=== PATIENT | female | born 2005 | race Caucasian/White ===

== ENCOUNTER 2024-09-10 01:45 | Day surgery (SDC) | payer OTHER ==
[2024-09-10] MEDS ORDERED: hydrALAZINE 20 MG/ML VIAL SLOW IVP PRN (01:54)
[2024-09-10 04:11] VITALS: BMI 39.1
[2024-09-10 04:16] LABS: #Basophils 0.03 10x3/uL (0.0-0.2); #Eosinophils 0.09 10x3/uL (0.0-0.5); #Monocytes 0.73 10x3/uL (0.0-1.1); #Neutrophils 7.74 10x3/uL (1.5-8.4); %Basophils 0.3 % (0.0-2.0); %Eosinophils 0.9 % (0.0-6.0); %Lymphocytes 13.8 % (18.0-47.0); %Monocytes 7.3 % (0.0-10.0); %Neutrophils 77.3 % (40.0-75.0); Hematocrit 32.6 % (34.9-44.5); Hemoglobin 10.6 g/dL (12.0-15.5); Mean Corpuscular Hemoglobin 27.7 pg (27.0-33.0); Mean Corpuscular Volume 85.3 fL (81.6-98.3); Platelet Count 314 10x3/uL (150-450); Red Blood Cell (RBC) Count 3.82 10x6/uL (3.90-5.03); White Blood Cell (WBC) Count 10.01 10x3/uL (3.5-10.5)
[2024-09-10 04:36] LABS: ALT (SGPT) 25 U/L (Less than 34); AST (SGOT) 21 U/L (11-34); Albumin 2.9 g/dL (3.1-4.5); Alkaline Phosphatase 142 U/L (40-110); Anion Gap 16 mmol/L (10-20); BUN (Urea Nitrogen) 8 mg/dL (7.0-18.7); Bilirubin, Total 0.4 mg/dL (0.3-1.2); Calc. Creatinine Clearance 224 mL/min (70-130); Calcium 8.9 mg/dL (7.8-10.44); Carbon Dioxide 18 mmol/L (22-29); Chloride 107 mmol/L (98-107); Globulin 3.9 g/dL (2.4-3.5); Glucose 126 mg/dL (70-105); Potassium 4.1 mmol/L (3.5-5.1); Sodium 137 mmol/L (136-145)
== END 2024-09-10 08:00 | disposition home health service (06) ==
LOC: CSHLD/OP 01:45
PROVIDERS: ATTEND Family Medicine
DX: O47.03 False labor before 37 completed weeks of gestation, third trimester (principal); Z3A.34 34 weeks gestation of pregnancy; Z79.899 Other long term (current) drug therapy
CPT/HCPCS: 36415; 76705; 76770; J3010

== ENCOUNTER 2024-10-14 20:14 | Inpatient (IN) | payer OTHER ==
[2024-10-14 22:40] VITALS: BMI 40.7
[2024-10-14] MEDS ORDERED: Methylergonovine 0.2 MG/ML VIAL IM PRN (22:41)
[2024-10-14] MEDS ORDERED: Acetaminophen 500 MG TAB PO PRN (22:41)
[2024-10-14] MEDS ORDERED: Diphenoxylate HCl/Atropine Tablet PO PRN (22:41)
[2024-10-14] MEDS ORDERED: Oxytocin 30 units/NS 500 ML 500 ML IV SCH ×2 (22:41)
[2024-10-14] MEDS ORDERED: Ondansetron PF 4 MG/2 ML Vial IVP PRN (22:41)
[2024-10-14] MEDS ORDERED: HYDROcodone/Acetaminophen 5/325 mg Tablet PO PRN (22:41)
[2024-10-14] MEDS ORDERED: Tranexamic Acid 1,000 MG/10 ML VIAL IVP PRN (22:41)
[2024-10-14] MEDS ORDERED: Carboprost 250 MCG/ML AMP IM PRN (22:41)
[2024-10-14 22:47] LABS: Hematocrit 30.9 % (34.9-44.5); Hemoglobin 10.2 g/dL (12.0-15.5); Mean Corpuscular Hemoglobin 27.3 pg (27.0-33.0); Mean Corpuscular Volume 82.6 fL (81.6-98.3); Platelet Count 307 10x3/uL (150-450); Red Blood Cell (RBC) Count 3.74 10x6/uL (3.90-5.03); White Blood Cell (WBC) Count 6.97 10x3/uL (3.5-10.5)
[2024-10-14 23:17] LABS: Hep B Surf Ag - L&D Non-Reactive S/CO (NonReactive)
[2024-10-14 23:19] LABS: Syphilis Antibody Index 0.06 S/CO (<1.00 Non-Reactive)
[2024-10-15] MEDS: Penicillin G Potassium 5 MILL.UNITS in Sodium Chloride 0.9% 100 ML IVPB SCH (05:24)
[2024-10-15] MEDS: Oxytocin 30 units/NS 500 ML 500 ML IV SCH (05:24)
[2024-10-15] MEDS: fentaNYL/Ropivacaine Epidural 100 ML ONE (06:25)
[2024-10-15] MEDS ORDERED: Acetaminophen 325 MG TAB PO PRN (06:29)
[2024-10-15] MEDS ORDERED: diphenhydrAMINE 50 MG/ML VIAL IVP PRN (06:29)
[2024-10-15] MEDS ORDERED: Communication Order-Pharmacy FS SCH (06:30)
[2024-10-15] MEDS: Ondansetron PF 4 MG/2 ML Vial IVP PRN (07:07)
[2024-10-15] MEDS ORDERED: Bupivacaine/Epinephrine 0.25% 30 ML VIAL ONE (08:00)
[2024-10-15] MEDS ORDERED: Bupivacaine 0.25% HCL 30 ML VIAL ONE (08:00)
[2024-10-15] MEDS: Penicillin G 2.5 MILL.units 2.5 MILL.UNITS in Premix 1 BAG IVPB SCH (10:27)
[2024-10-15] MEDS: Penicillin G Potassium 5 MILL.UNITS VIAL ONE (14:17)
[2024-10-15] MEDS: fentaNYL 2 mcg/Ropivacaine 0.2% Epidural 100 ML CADD EPIDURAL SCH (15:50)
[2024-10-15] MEDS: Lidocaine 1% (PF) 30 ML VIAL SC PRN (20:18)
[2024-10-15] MEDS: Ibuprofen 800 MG TAB PO PRN (21:23)
[2024-10-15] MEDS: hydrALAZINE 20 MG/ML VIAL SLOW IVP PRN (21:23)
[2024-10-15] MEDS ORDERED: Lanolin Ointment 7 GM TUBE TOP PRN (23:33)
[2024-10-15] MEDS ORDERED: HYDROcodone/Acetaminophen 5/325 mg Tablet PO PRN (23:33)
[2024-10-15] MEDS ORDERED: Ondansetron PF 4 MG/2 ML Vial IVP PRN (23:33)
[2024-10-15] MEDS ORDERED: hydrALAZINE 20 MG/ML VIAL SLOW IVP PRN (23:33)
[2024-10-15] MEDS ORDERED: Bisacodyl 10 MG SUPP PR PRN (23:33)
[2024-10-15] MEDS ORDERED: Milk Of Magnesia 30 ML UDCUP PO PRN (23:33)
[2024-10-15] MEDS ORDERED: Preparation H Ointment 28 GM TUBE PR PRN (23:33)
[2024-10-15] MEDS ORDERED: Benzocaine-Menthol 82.5 ML CAN TOP PRN (23:33)
[2024-10-15] MEDS ORDERED: diphenhydrAMINE 25 MG CAP PO PRN (23:33)
[2024-10-16] MEDS: Ibuprofen 800 MG TAB PO SCH (05:06)
[2024-10-16] MEDS: Ferrous Sulfate 325 MG TAB PO SCH (10:41)
[2024-10-17] MEDS: HYDROcodone/Acetaminophen 5/325 mg Tablet PO PRN (01:54)
[2024-10-17] MEDS: Boostrix 0.5 ML (Tdap) VIAL (>/=7 yrs of age) IM ONE (07:08)
[2024-10-17 08:08] VITALS: BP 136/65; TEMP 97.9
== END 2024-10-17 18:30 | disposition home or self-care (01) | DRG 768 ==
LOC: CSHLD 20:14 → CSHPP 10-15 23:20
PROVIDERS: ADMIT Family Medicine; ATTEND Family Medicine
PROC: 3E0P7VZ Introduction of Hormone into Female Reproductive, Via Natural or Artificial Opening (ICD-10-PCS; principal; 2024-10-15)
PROC: 0DQR0ZZ Repair Anal Sphincter, Open Approach (ICD-10-PCS; 2024-10-15)
PROC: 10E0XZZ Delivery of Products of Conception, External Approach (ICD-10-PCS; 2024-10-15)
PROC: 10907ZC Drainage of Amniotic Fluid, Therapeutic from Products of Conception, Via Natural or Artificial Opening (ICD-10-PCS; 2024-10-15)
PROC: 0UQMXZZ Repair Vulva, External Approach (ICD-10-PCS; 2024-10-15)
PROC: 0T9B70Z Drainage of Bladder with Drainage Device, Via Natural or Artificial Opening (ICD-10-PCS; 2024-10-15)
DX: O99.214 Obesity complicating childbirth (principal); Z37.0 Single live birth; Z3A.40 40 weeks gestation of pregnancy; Z79.82 Long term (current) use of aspirin; O48.0 Post-term pregnancy; O70.20 Third degree perineal laceration during delivery, unspecified; O71.82 Other specified trauma to perineum and vulva
CPT/HCPCS: 36415; 51702; 85027; 86780; 86850; 86900; 86901; 87340; J0360; J0595; J0665; J2405; J2540; J2550; J2590; J7120